=== PATIENT | female | born 1945 | race Caucasian/White ===

== ENCOUNTER 2020-04-03 07:42 | Outpatient (CLI) | payer MEDICARE, OTHER, SELFPAY ==
--- NOTE | ~2020-04-03 | NM_ITS ---
EXAMINATION: NM parathyroid w imaging DATE: 04/03/2020 11:58 INDICATION: Hypercalcemia. TECHNIQUE: 20 mCi Tc99m sestamibi was administered intravenously. Anterior images of the neck were ob tained immediately and at 2 hours. SPECT images of the neck were obtained. COMPARISON: None. FINDINGS: There is no focus of persistent activity in the area of the thyroid or mediastinum to sugge st parathyroid adenoma. IMPRESSION: 1. No evidence of a parathyroid adenoma. Reviewed, dictated and finalized at location A.
== END 2020-04-03 07:43 | disposition home or self-care (01) ==
LOC: ANHIMG 07:48
PROVIDERS: PCP Internal Medicine; Visit Provider Internal Medicine Endocrinology, Diabetes & Metabolism
DX: E21.3 Hyperparathyroidism, unspecified (principal)
CPT/HCPCS: 78070; A9500